=== PATIENT | male | born 1990 | race Caucasian/White ===

== ENCOUNTER 2019-05-04 21:40 | Emergency (ER) | payer SELFPAY ==
[~2019-05-04] VITALS: Ht 185.4 cm; Wt 108.9 kg
[2019-05-04 21:40] VITALS: BP 137/89
== END 2019-05-04 22:30 | disposition home or self-care (01) ==
LOC: ER 21:44
DX: G44.209 Tension-type headache, unspecified, not intractable (principal); M62.838 Other muscle spasm; I10 Essential (primary) hypertension; F17.200 Nicotine dependence, unspecified, uncomplicated